=== PATIENT | female | born 1975 | race Caucasian/White ===

== ENCOUNTER → 2018-11-01 | Outpatient (CLI) | payer OTHER ==
[~2018-11-01] MED LIST: ALPR0.25 PO; CLON0.5T PO; OMEP20CA9 PO; SERT100T32 PO
== END | disposition home or self-care (01) ==
LOC: EDSTATUS 10-22 08:00 → CFH 09:50
PROVIDERS: ATTEND Genetic Counselor, MS
DX: Z12.31 Encounter for screening mammogram for malignant neoplasm of breast (principal)
CPT/HCPCS: 77063; 77067

== ENCOUNTER → 2020-04-01 | Outpatient (CLI) | payer OTHER | END | disposition home or self-care (01) | LOC: CFH 07:32 | PROVIDERS: ATTEND Genetic Counselor, MS | DX: Z12.31 Encounter for screening mammogram for malignant neoplasm of breast (principal) | CPT/HCPCS: 76641; 77063; 77067 ==

== ENCOUNTER 2020-09-12 14:33 | Emergency (ER) | payer OTHER ==
[~2020-09-12] VITALS: Ht 154.9 cm; Wt 60.8 kg
--- NOTE | 2020-09-12 14:55 | NUR ---
Pt presents to the ER with complaint of palpitations and slow HR "in the 40s." Pt has a hx of PVCs and "can feel them all the time" and is a pt of MD Navarro, cardiology. Pt takes Diltiazem 120mg q day normally but hasn't taken it since because her BP has been low. Pt denies all other s/sx, including pain, dizziness, feeling faint, SOB. Connected to cardiac cath technician, irregular on the monitor, bigemony noted. JOSE. Report to primary RN.
[2020-09-12 15:29] LABS: BASOPHILS % (AUTO) 1 % (0-1); EOSINOPHILS % (AUTO) 0 % (1-7); LYMPHOCYTES % (AUTO) 25 % (22-44); MEAN CORPUSCULAR HEMOGLOBIN 31.5 pg (27.0-34.8); MEAN CORPUSCULAR HGB CONC 33.5 g/dL (32.4-35.8); MEAN PLATELET VOLUME 8.1 fL (7.4-10.4); MONOCYTES % (AUTO) 5 % (2-9); NEUTROPHILS % (AUTO) 69 % (42-75); PLATELET COUNT 271 x10^3/uL (130-400); RED BLOOD COUNT 4.43 x10^6/uL (3.82-5.3); RED CELL DISTRIBUTION WIDTH 13.2 % (9.6-15.2)
[2020-09-12 15:30] LABS: MD NO
[2020-09-12 15:41] LABS: ALANINE AMINOTRANSFERASE 31 U/L (12-78); ALBUMIN 3.8 g/dL (3.4-5.0); ANION GAP 4 mmol/L (5-15); CALCIUM 8.9 mg/dL (8.5-10.1); CHLORIDE 107 mmol/L (98-107); CREATININE 0.75 mg/dL (0.55-1.02)
--- NOTE | 2020-09-12 15:46 | NUR ---
PT RESTING COMFORTABLY IN BED. CALL LIGHT WITHIN REACH
[2020-09-12 15:52] LABS: ALKALINE PHOSPHATASE 71 U/L (45-117); BILIRUBIN,TOTAL 0.4 mg/dL (0.2-1.0); TOTAL PROTEIN 7.5 g/dL (6.4-8.2)
[2020-09-12 16:04] LABS: FREE T4 (FREE THYROXINE) 0.85 ng/dL (0.76-1.46)
[2020-09-12] MEDS ORDERED: DILTIAZEM 120 MG CAP.ER.12H PO ONE (16:30)
[2020-09-12 17:01] VITALS: BP 133/73
--- NOTE | 2020-09-12 17:01 | NUR ---
PT TOOK HOME DILT PER GUT[facility] SLOAN, CONFERMED DOSE 120MG
== END 2020-09-12 17:13 ==
LOC: ED 15:29
DX: R00.2 Palpitations (principal); I49.3 Ventricular premature depolarization; K21.9 Gastro-esophageal reflux disease without esophagitis
CPT/HCPCS: 36415; 71045; 80053; 83735; 84439; 84443; 85025; 93005; 99285